=== PATIENT | female | born 1990 | race Caucasian/White ===

== ENCOUNTER → 2016-12-03 | Outpatient (CLI) | payer OTHER ==
--- NOTE | 2016-12-03 19:35 | ECHO ---
DATE OF PROCEDURE: 12/03/2016 REFERRING PROVIDER: MAGEN Durham Study was performed on 12/03/2016 for diagnosis palpitations. The patient measures 68 inches and weighs 158 pounds. DIMENSIONS: IVS: 0.7 LV: 4.3 LVPW: 0.8 LA: 2.9 Aorta: 2.8 Mitral inflow E velocity 71.1 cm/s, A wave velocity 40 cm/s E prime septal velocity: 12.4 cm/s E prime lateral: 14.4 cm/s FINDINGS: The study is of good technical quality. Left ventricle is normal size and systolic function, estimated left ventricular ejection fraction (LVEF) 55-60%. Right ventricle is also normal size and systolic function. Both atria appear normal. All four valves appear normal. No pericardial effusion is noted. Inferior vena cava is normal size. Aortic root and aortic arch appear normal. Abdominal aorta was not visualized. Doppler interrogation reveals normal function of aortic and mitral valves. There is trace tricuspid insufficiency with calculated pulmonary artery pressure within normal limits. Pulmonic valve is also functionally competent. Mitral inflow pattern and tissue Doppler velocities of mitral annulus reveal normal diastolic function. CONCLUSIONS: 1. Study is of good technical quality. 2. Normal echocardiogram. COMMENTS: Subacute bacterial endocarditis (SBE) prophylaxis is not recommended. [facility], [place]
== END ==
LOC: M CARPUL 09:22
PROVIDERS: ATTEND Nurse Practitioner Family
DX: R00.2 Palpitations (principal)

== ENCOUNTER 2018-06-05 22:48 | Emergency (ER) | payer OTHER ==
[~2018-06-05] VITALS: Ht 172.7 cm; Wt 63.6 kg
[~2018-06-05 22:48] MED LIST: ACET500T15 PO; ASPI1TAB20 PO; ZOLO100T PO
[2018-06-05] MEDS ORDERED: TYLE500T78 PO (23:01)
[2018-06-05] MEDS ORDERED: ADDE25CA PO (23:01)
[2018-06-05] MEDS ORDERED: IBUP-1114 PO (23:01)
--- NOTE | 2018-06-05 23:55 | REPVR ---
EXAM: CT Head Without Contrast EXAM DATE/TIME: 06/05/2018 11:48 PM CLINICAL HISTORY: 27 years old, female; Pain; Additional info: Head injury TECHNIQUE: Imaging protocol: Axial computed tomography images of the head/brain without contrast. Radiation optimization: All CT scans at this facility use at least one of these dose optimization techniques: automated exposure control; mA and/or kV adjustment per patient size (includes targeted exams where dose is matched to clinical indication); or iterative reconstruction. COMPARISON: CT Head without contrast 06/08/2017 8:38 PM FINDINGS: Brain: Normal. No hemorrhage. No significant white matter disease. No edema. Ventricles: Normal. No ventriculomegaly. Bones/joints: Unremarkable. No acute fracture. Sinuses: Visualized sinuses are unremarkable. No acute sinusitis. Mastoid air cells: Visualized mastoid air cells are unremarkable. No mastoid effusion. Soft tissues: Unremarkable. IMPRESSION: No acute intracranial abnormality. Electronically signed by: Melo Betancourt On 06/05/2018 23:55:22 PM
[2018-06-06 00:45] VITALS: BP 112/66
== END 2018-06-06 00:46 | disposition home or self-care (01) ==
LOC: M ED 22:48
DX: S06.0X0A Concussion without loss of consciousness, initial encounter (principal); W01.0XXA Fall on same level from slipping, tripping and stumbling without subsequent striking against object, initial encounter; Y92.410 Unspecified street and highway as the place of occurrence of the external cause; Y93.K1 Activity, walking an animal; F90.9 Attention-deficit hyperactivity disorder, unspecified type; F41.9 Anxiety disorder, unspecified; Z79.82 Long term (current) use of aspirin; Z88.0 Allergy status to penicillin